=== PATIENT | female | born 1945 | race Caucasian/White ===

== ENCOUNTER 2024-06-12 11:24 | Emergency (ER) | payer MEDICARE ==
[~2024-06-12] VITALS: Ht 180.3 cm; Wt 117.9 kg
[2024-06-12 11:47] VITALS: BP 149/67
[2024-06-12 12:02] VITALS: BP 129/67
[2024-06-12] MEDS ORDERED: ALL DAY10 MG PO (13:04)
[2024-06-12 13:05] VITALS: BP 129/67
== END 2024-06-12 13:15 | disposition home or self-care (01) ==
LOC: ED 11:24
DX: Z48.01 Encounter for change or removal of surgical wound dressing (principal); I10 Essential (primary) hypertension; E11.9 Type 2 diabetes mellitus without complications

== ENCOUNTER 2024-06-14 11:33 | Emergency (ER) | payer MEDICARE ==
[2024-06-14] VITALS (16 sets, daily range): BP systolic 96–195; BP diastolic 32–114
[~2024-06-14] VITALS: Ht 180.3 cm; Wt 117.0 kg
[~2024-06-14 11:33] MED LIST: ALL DAY10 MG PO
[2024-06-14] MEDS ORDERED: SODIUM CHLORIDE 0.9% 1,000 ML IV ONE ×2 (12:25→13:50)
[2024-06-14 13:06] LABS: BASO% 0.6 % (0-3); HEMATOCRIT 36.2 % (37.0-47.0); HEMOGLOBIN 11.6 g/dl (12.0-16.0); IMMATURE GRANULOCYTES 0.1 % (0.0-5.0); LYMPH% 11.3 % (15-41); MEAN CELL VOLUME 90.7 fL CALC (80.0-100.0); MEAN CORPUSCULAR HGB 29.1 pG CALC (26.0-32.0); MONO% 8.6 % (2-13); NEUT# 4.52 thou/uL (2.00-7.15); NEUT% 64.4 % (42-76); RED BLOOD COUNT 3.99 mill/uL (4.20-5.60)
[2024-06-14 13:25] LABS: ALBUMIN 3.4 g/dL (3.2-5.0); POTASSIUM 4.1 mmol/l (3.5-5.1); TOTAL PROTEIN 6.4 g/dL (6.3-8.2)
[2024-06-14] MEDS ORDERED: INSULIN REGULAR (HUMAN) 100 UNIT/ML INJ IV ONE (13:50)
[2024-06-14] MEDS ORDERED: CLINDAMYCIN PHOSPHATE 50 ML IV ONE (14:55)
[2024-06-14] MEDS ORDERED: CEFEPIME HYDROCHLORIDE 1 GM in SODIUM CHLORIDE 0.9% 50 ML IV ONE (14:55)
[2024-06-14] MEDS ORDERED: ONDANSETRON4 MG PO (16:28)
== END 2024-06-14 16:58 | disposition left against medical advice (07) ==
LOC: ED 11:33
PROVIDERS: Nurse Practitioner
DX: Z48.01 Encounter for change or removal of surgical wound dressing (principal); I95.9 Hypotension, unspecified; E87.20 Acidosis, unspecified; Z53.29 Procedure and treatment not carried out because of patient's decision for other reasons
CPT/HCPCS: J0692; J0736